=== PATIENT | male | born 1945 | race Caucasian/White ===

== ENCOUNTER 2021-06-10 09:39 | Emergency (ER) | payer MEDICARE, SELFPAY ==
--- NOTE | ~2021-06-10 | CT_ITS ---
EXAMINATION: CT brain wo con INDICATION: Altered mental status COMPARISON: None TECHNIQUE: Standard unenhanced head CT. The dose-length product (DLP) was 605.33 mGy-cm. The mA was a djusted according to patient size. Iterative reconstruction technique was employed. FINDINGS: There is no acute intraparenchymal hemorrhage. No evidence of mass lesion. No evidence of a cute infarction. There is mild periventricular and subcortical hypodensity probably related to small vessel ischemic disease. There is mild prominence of the sulci and ventricles related to cerebral atr ophy. Intracranial calcified cerebral atherosclerosis is noted. There are no extra-axial collections. There is no mass effect or midline shift. The orbits and soft tissues are unremarkable. The visualiz ed sinuses and mastoid air cells are well aerated. IMPRESSION: 1. No acute intracranial abnormality. 2. Age related findings. Reviewed, dictated and finalized at location B.
--- NOTE | ~2021-06-10 | XR_ITS ---
XR chest 1V DATE: 06/10/2021 10:20 INDICATION: Altered mental state TECHNIQUE: AP chest COMPARISON: None FINDINGS: Heart size is within normal range. There is aortic calcification and tortuosity. No hilar o r mediastinal enlargement. There are numerous calcified pulmonary granulomas and calcified hilar and mediastinal nodes consisten t with old pulmonary granulomatous disease. No pulmonary infiltrate or consolidation, pleural effusion or pulmonary vascular congestion or pneumo thorax is detected. Degenerative change of the thoracic and lumbar spine and glenohumeral joints. Levoscoliosis of the up per thoracic spine. IMPRESSION: No active cardiopulmonary disease Old pulmonary granulomatous disease Aortic calcification and tortuosity Reviewed, dictated and finalized at location A.
[2021-06-10 09:41] VITALS: BP 135/89; PULSE 60; RESP 16; TEMP 36.3; O2SAT 98
[2021-06-10 10:43] LABS: Basophils Percent Auto 0.7 % (0.2-1.2); Eosinophils Absolute Auto 0.1 K/mm3 (0-0.3); Eosinophils Percent Auto 1.6 % (0-4.4); Hematocrit 47.4 % (42.0-52.0); Hemoglobin 15.8 g/dL (14.0-18.0); Immature Granulocyte Absolute 0.08 K/mm3 (0.00-0.031); Immature Granulocyte Percent A 1.4 % (0-0.5); Lymphocytes Absolute Auto 0.98 K/mm3 (0.9-3.2); Lymphocytes Percent Auto 17.6 % (18.3-44.2); Mean Corpuscular HGB Conc 33.3 g/dl (32-36); Mean Corpuscular Hemoglobin 29.5 pg (26-34); Mean Corpuscular Volume 88.6 fl (80-100); Mean Platelet Volume 9.1 fl (7.4-10.4); Monocytes Absolute Auto 0.3 K/mm3 (0.1-0.6); Monocytes Percent Auto 5.7 % (2.6-8.5); Neutrophils Absolute Auto 4.1 K/mm3 (1.3-6.7); Platelet Count Result 207 k/mm3 (150-375); Red Blood Count 5.35 M/mm3 (4.6-6.20); Red Cell Distribution Width 14.2 % (11.5-14.5); White Blood Count 5.6 K/mm3 (4.5-10.0)
[2021-06-10 10:52] LABS: Add Urine Microscopic? NO; Appearance Urine Clear (Clear); Bilirubin Urine Negative (Negative); Blood Urine Negative (Negative); Color Urine Yellow (Yellow); Glucose Urine UA Negative (Negative); Ketones Urine Negative (Negative); Leukocyte Esterase Ur Negative LEU/UL (Negative); Nitrate Urine Negative (Negative); Protein Urine Negative (Negative); Specific Grav Ur 1.011 (1.001-1.035); Urobilinogen Urine Negative mg/dL (<2.0)
[2021-06-10 10:53] LABS: Alanine Aminotransferase 22 U/L (4-50); Albumin Level 4.4 g/dL (3.5-5.1); Alkaline Phosphatase 73 U/L (38-126); Anion Gap 10 mmol/L (8-16); Aspartate Amino Transferase 32 U/L (17-59); Bilirubin,Total 0.6 mg/dL (0.2-1.3); Blood Urea Nitrogen 15 mg/dL (9-20); Calcium 8.8 mg/dL (8.4-10.2); Carbon Dioxide 28 mmol/L (22-30); Chloride 100 mmol/L (98-107); Estimated Glomerular Filt Rate > 60; Glucose 88 mg/dL (65-110); Potassium 4.4 mmol/L (3.4-5.0); Sodium 138 mmol/L (137-145)
[2021-06-10 10:55] LABS: Ethanol < 10 mg/dL (<10)
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
[2021-06-10 11:56] LABS: Amphetamine Screen Urine Negative (Negative); Barbiturate Screen Urine Negative (Negative); Benzodiazepines Screen Urine Negative (Negative); Cannabinoid Screen Urine Negative (Negative); Cocaine Screen Urine Negative (Negative); Methadone Screen Urine Negative (Negative); Opiate Screen Urine Negative (Negative); Phencyclidine Screen Urine Negative (Negative)
[2021-06-10] MEDS: LORazepam INJ (*CRX) 2 MG/ML VIAL 1 MG IV PUSH ×2 (13:54→17:53)
--- NOTE | 2021-06-10 14:02 | PCCCNOTE ---
After speaking to Dr. Bates, pt sister Daria Polk, and the pt, placement to [facility] is appropriate if able to find and accepting unit. See ED note by Dr. Bates for pt history and background to present problem. [place] called and sent info. [facility] returned call and said doctor has denied inpt admission at this time. [facility] contacted and faxed info and awaiting determination.
[2021-06-10 14:24] VITALS: BP 120/79; PULSE 80; RESP 18; O2SAT 97
[2021-06-10 15:19] LABS: SARS-CoV-2 RNA PCR Negative
[2021-06-10 16:58] VITALS: PULSE 80; RESP 18; O2SAT 99
--- NOTE | 2021-06-10 17:42 | PC.NURSE ---
made contact with laxmi moore to transfer pt to [facility]. pd has rig in route now
--- NOTE | 2021-06-10 17:48 | PC.NURSE ---
attempted to call report to [facility] at [facility]. pt going to [id number]. will attempt again. [phone]. dr Irwin accepting
[2021-06-10 17:52] VITALS: BP 139/91; PULSE 74; RESP 18; O2SAT 97
--- NOTE | 2021-06-10 18:05 | PC.NURSE ---
called report to fred caro at [facility], also called sister to update on transfer.
== END 2021-06-10 19:11 ==
PROVIDERS: Emergency Provider Emergency Medicine
DX: F03.91 Unspecified dementia, unspecified severity, with behavioral disturbance (principal); R45.1 Restlessness and agitation; Z20.822 Contact with and (suspected) exposure to COVID-19; R56.1 Post traumatic seizures; K21.9 Gastro-esophageal reflux disease without esophagitis; E03.9 Hypothyroidism, unspecified; Z87.820 Personal history of traumatic brain injury; Z79.82 Long term (current) use of aspirin; Z79.899 Other long term (current) drug therapy
CPT/HCPCS: 36415; 70450; 71045; 80053; 80307; 81003; 84443; 85025; 96374; 96376; 99285; C9803; J2060; U0003; U0005